=== PATIENT | female | born 1950 | race Two or more races ===

== ENCOUNTER 2017-05-07 10:47 | Inpatient (IN) | payer OTHER ==
[~2017-05-07] VITALS: Ht 160 cm; Wt 68.0 kg
[2017-05-07] MEDS ORDERED: LOPRESSOR HCT1 EACH (11:19)
[2017-05-11] MEDS ORDERED: TOPROL XL25 M1 PO (15:09)
[2017-05-11] MEDS ORDERED: HYDRALAZINE HCL50 MG PO (15:09)
[2017-05-11] MEDS ORDERED: LOSARTAN-HCTZ1 EAC2 PO (15:09)
[2017-05-11] MEDS ORDERED: CLOPIDOGREL BIS75 MG PO (15:09)
[2017-05-11] MEDS ORDERED: SIMVASTATIN40 MG PO (15:09)
== END 2017-05-11 17:30 | disposition home or self-care (01) | DRG 64 ==
LOC: ER 10:47 → ICU-2 22:42 → SEC-K 05-11 14:34 → MEDJ 05-11 16:28
PROC: BW28ZZZ Computerized Tomography (CT Scan) of Head (ICD-10-PCS; principal; 2017-05-07)
PROC: B030Y0Z Magnetic Resonance Imaging (MRI) of Brain using Other Contrast, Unenhanced and Enhanced (ICD-10-PCS; 2017-05-07)
PROC: B345ZZZ Ultrasonography of Bilateral Common Carotid Arteries (ICD-10-PCS; 2017-05-07)
PROC: B348ZZZ Ultrasonography of Bilateral Internal Carotid Arteries (ICD-10-PCS; 2017-05-07)
PROC: B246ZZZ Ultrasonography of Right and Left Heart (ICD-10-PCS; 2017-05-07)
PROC: B33RZZZ Magnetic Resonance Imaging (MRI) of Intracranial Arteries (ICD-10-PCS; 2017-05-08)
PROC: B246ZZ4 Ultrasonography of Right and Left Heart, Transesophageal (ICD-10-PCS; 2017-05-10)
DX: I63.511 Cerebral infarction due to unspecified occlusion or stenosis of right middle cerebral artery (principal); I63.233 Cerebral infarction due to unspecified occlusion or stenosis of bilateral carotid arteries; I16.1 Hypertensive emergency; R42 Dizziness and giddiness; J01.00 Acute maxillary sinusitis, unspecified; J32.0 Chronic maxillary sinusitis; I10 Essential (primary) hypertension
CPT/HCPCS: 70544; 70552

== ENCOUNTER 2019-03-27 09:30 | Emergency (ER) | payer OTHER ==
[~2019-03-27] VITALS: Ht 160 cm; Wt 68.9 kg
[~2019-03-27 09:30] MED LIST: CLOPIDOGREL BIS75 MG PO; HYDRALAZINE HCL50 MG PO; LOPRESSOR HCT1 EACH; LOSARTAN-HCTZ1 EAC2 PO; SIMVASTATIN40 MG PO; TOPROL XL25 M1 PO
[2019-03-27] MEDS ORDERED: CRESTOR40 MG (09:39)
[2019-03-27] MEDS ORDERED: ECOTRIN81 MG (09:40)
[2019-03-27] MEDS ORDERED: AMLODIPINE-OLM1 EACH (09:40)
== END 2019-03-27 14:16 | disposition home or self-care (01) ==
LOC: ER 09:30
DX: G45.9 Transient cerebral ischemic attack, unspecified (principal)

== ENCOUNTER 2021-09-12 17:52 | Emergency (ER) | payer OTHER ==
[~2021-09-12] VITALS: Ht 162.6 cm; Wt 62.6 kg
[~2021-09-12 17:52] MED LIST changes: +AMLODIPINE-OLM1 EACH; +CRESTOR40 MG; +ECOTRIN81 MG
[2021-09-12] MEDS ORDERED: PROTONIX20 MG PO (18:16)
[2021-09-12] MEDS ORDERED: KETO10TA2 PO (23:24)
== END 2021-09-12 23:29 | disposition home or self-care (01) ==
LOC: ER 17:52
DX: S52.501A Unspecified fracture of the lower end of right radius, initial encounter for closed fracture (principal); W18.39XA Other fall on same level, initial encounter; Y93.9 Activity, unspecified; Y92.9 Unspecified place or not applicable; Y99.9 Unspecified external cause status; I10 Essential (primary) hypertension

== ENCOUNTER 2022-09-14 15:20 | Inpatient (IN) | payer OTHER ==
[~2022-09-14] VITALS: Ht 167.6 cm; Wt 63.0 kg
[~2022-09-14 15:20] MED LIST changes: +KETO10TA2 PO; +PROTONIX20 MG PO
== END 2022-09-20 17:45 | disposition home or self-care (01) | DRG 304 ==
LOC: ER 15:20 → ICU-2 20:18 → MEDI 20:18
PROVIDERS: ADMIT Internal Medicine; ATTEND Internal Medicine
PROC: B020ZZZ Computerized Tomography (CT Scan) of Brain (ICD-10-PCS; 2022-09-14)
PROC: B345ZZZ Ultrasonography of Bilateral Common Carotid Arteries (ICD-10-PCS; 2022-09-14)
PROC: B348ZZZ Ultrasonography of Bilateral Internal Carotid Arteries (ICD-10-PCS; 2022-09-14)
PROC: B24BYZZ Ultrasonography of Heart with Aorta using Other Contrast (ICD-10-PCS; 2022-09-14)
PROC: B030ZZZ Magnetic Resonance Imaging (MRI) of Brain (ICD-10-PCS; 2022-09-14)
PROC: 02HV33Z Insertion of Infusion Device into Superior Vena Cava, Percutaneous Approach (ICD-10-PCS; principal; 2022-09-16)
PROC: 4A12X4Z Monitoring of Cardiac Electrical Activity, External Approach (ICD-10-PCS; 2022-09-17)
DX: I16.1 Hypertensive emergency (principal); I63.89 Other cerebral infarction; I11.9 Hypertensive heart disease without heart failure; E78.5 Hyperlipidemia, unspecified; Z86.73 Personal history of transient ischemic attack (TIA), and cerebral infarction without residual deficits; K21.9 Gastro-esophageal reflux disease without esophagitis
CPT/HCPCS: 70544

== ENCOUNTER 2024-11-26 13:00 | Emergency (ER) | payer OTHER ==
[~2024-11-26] VITALS: Ht 167.6 cm; Wt 74.8 kg
[2024-11-26 13:52] VITALS: BP 138/85; O2SAT 97
[2024-11-26 15:56] LABS: BASO % 0.3 % (0.1-1.2); EOS # 0.18 (0.04-0.54); EOS % 1.5 % (0.7-7.0); HEMATOCRIT 44.6 % (34.1-44.9); LYMPH # 2.35 (1.18-3.74); LYMPH % 19.4 % (19.3-53.1); MEAN CORPUSCULAR HEMOGLOBIN 23.6 pg (25.6-32.2); MONO # 0.93 (0.24-0.82); MONO % 7.7 % (4.7-12.5); NEUT # 8.58 (1.56-6.13); NEUT % 70.9 % (34.0-71.1); PLATELET COUNT 237 K/uL (163-369); RED BLOOD COUNT 5.92 M/uL (3.93-5.22); RED CELL DISTRIBUTION WIDTH 15.1 % (11.6-14.4)
[2024-11-26 16:14] LABS: INR 1.06; PARTIAL THROMBOPLASTIN TIME 24.5 SECONDS (22.0-34.0); PROTHROMBIN TIME 11.5 SECONDS (9.0-11.5)
[2024-11-26 16:20] LABS: ALBUMIN 3.7 gm/dL (3.4-5.0); BILIRUBIN TOTAL 0.51 mg/dL (0.3-1.2); CALCIUM 10.1 mg/dL (8.5-10.1); CREATININE SERUM 1.47 mg/dL (0.55-1.02); GFR 34.94; GLOBULINA 4.4 G/DL (2.4-3.5); POTASSIUM 3.8 mEq/L (3.5-5.1); TOTAL PROTEIN 8.1 gm/dL (6.4-8.2)
[2024-11-26] MEDS ORDERED: ACETAMINOPHEN 500 MG GEL..CAP PO ONE ×2 (17:43→17:45)
== END 2024-11-26 20:01 | disposition home or self-care (01) ==
LOC: ER 13:25
PROVIDERS: Emergency Medicine
DX: R20.0 Anesthesia of skin (principal); I10 Essential (primary) hypertension; Z86.73 Personal history of transient ischemic attack (TIA), and cerebral infarction without residual deficits